=== PATIENT | female | born 1955 | race Caucasian/White ===

== ENCOUNTER 2018-11-13 08:30 | Inpatient (IN) | payer MEDICARE, OTHER ==
[~2018-11-13] VITALS: Ht 170.2 cm; Wt 71.7 kg
[~2018-11-13 08:30] MED LIST: ATOR10 PO; B Complex #11 EACH; BENEFIBER1 EACH; CAMBIA50 MG PO; CHOL10002 PO; CLIMARA1 PATCH.W1 TOP; CONEST.9 PO; DOCU100 PO; ESTMED1.5T PO; ESTMEDA PO; FISH OIL 1,0001 EACH PO; HAIR, SKIN & N1 EAC1 PO; HYDACE10B PO; HYDACE5 PO; HYDR1TAB94 PO; IBUP400; IBUP800 PO; Ibuprofen Ib100 MG PO; KRILL OIL500 MG; KRILL OIL500 MG PO; LAVAP17G; MAGN84 PO; MULVITA PO; Multivitamin1 EAC1 PO; OXYACE5T PO; POLY17UD PO; PROG100 PO; STOOL SOFTENER PRN PO; Stool Softener100 MG PO; Super B Comple1 EAC2 PO; TRAM50 PO; [UNRECOGNIZED DRUG - REMARK]
--- NOTE | 2018-12-04 06:34 | NUR ---
History, Chart, Medications and Allergies reviewed before start of procedure. Patient confirms NPO status and agrees with scheduled surgery. Lungs clear T/O to Auscultation. Patient reports completing Chlorhexadine shower X2 prior to admission to hospital. Pre-Op teaching done. Pt verbalizes understanding.
--- NOTE | 2018-12-04 07:07 | NUR ---
TRACKER EXPLAINED AND QUESTIONS ANSWERED.
--- NOTE | 2018-12-04 07:11 | NUR ---
PATIENT UP TO BATHROOM FOR UNMEASURED.
--- NOTE | 2018-12-04 07:36 | NUR ---
NATALYN SWABS TO BILATERAL NARES PRESURGICALLY.
--- NOTE | 2018-12-04 17:34 | NUR ---
SHIFT SUMMARY S/P R MEGAN TODAY. PT HAS WORKED WITH PHYSICAL THERAPY AND IS DOING WELL WITH SBA USING FWW AND GAIT BELT. PT RECEIVING SCHEDULED TORADOL, TYLENOL, AND OXYCODONE FOR PAIN MANAGEMENT. DRESSING TO R HIP IS CDI WITH POLAR PACK IN PLACE. PT ALSO USING KPAD TO LOWER BACK FOR COMFORT. PT SLOWLY JOSELINE CLEAR LIQS AND SMALL PO INTAKE WITH NAUSEA X1. IVF INFUSING PER ORDERS. PT VOIDING. VSS. PT VERY PLEASANT AND ORIENTED. AT SIDE FOR SUPPORT. USES CALL LIGHT APPROPRIATELY.
--- NOTE | 2018-12-05 04:07 | NUR ---
SHIFT SUMMARY: PT POD #1 FOR RIGHT MEGAN. A&O X4. VS WNL. JOSELINE REG DIET, DENIES N/V. ADEQUATE PO INTAKE. PAIN MANAGED WITH 10MG OXY Q4 PER EMAR. DRESSING TO R HIP IS C/D/I. POLAR PACK IN PLACE. OOB SEVERAL TIMES TO BATHROOM W/FWW+GB. VOIDING AND JOSELINE ACTIVITY WELL. NO CONCERNS AT THIS TIME.
[2018-12-05 04:29] LABS: BASOPHILS ABSOLUTE AUTO 0.02 K/mm3 (0.00-0.23); BASOPHILS PERCENT AUTO 0 % (0-2); EOSINOPHILS ABSOLUTE AUTO 0.03 K/mm3 (0.00-0.68); EOSINOPHILS PERCENT AUTO 0 % (0-6); Hematocrit 28.7 % (33.0-51.0); Hemoglobin 9.2 g/dL (11.5-16.0); IMMATURE GRAN ABSOLUTE AUTO 0.01 K/mm3 (0.00-0.10); IMMATURE GRAN PERCENT AUTO 0 % (0-1); LYMPHOCYTES ABSOLUTE AUTO 1.34 K/mm3 (0.84-5.20); LYMPHOCYTES PERCENT AUTO 19 % (21-46); MONOCYTES ABSOLUTE AUTO 0.85 K/mm3 (0.16-1.47); MONOCYTES PERCENT AUTO 12 % (4-13); Mean Corpuscular HGB 30.8 pg (26.0-34.0); Mean Corpuscular HGB Conc 32.1 g/dL (31.5-36.5); Mean Corpuscular Volume 96 fL (80-100); Mean Platelet Volume 10.6 fL (9.1-12.4); NEUTROPHILS ABSOLUTE AUTO 4.93 K/mm3 (1.96-9.15); NEUTROPHILS PERCENT AUTO 69 % (41-73); Platelet Count 185 K/mm3 (150-400); RDW Coefficient Variation 12.7 % (11.7-14.2); RDW Standard Deviation 44.5 fL (35.1-46.3); Red Blood Cell Count 2.99 M/mm3 (3.80-5.20); White Blood Cell Count 7.18 K/mm3 (4.00-11.30)
[2018-12-05 04:48] LABS: Anion Gap 5 mmol/L (6-16); Blood Urea Nitrogen 13 mg/dL (8-24); CO2, Blood 28 mmol/L (21-32); Calcium, Blood 8.3 mg/dL (8.5-10.1); Chloride, Blood 109 mmol/L (98-108); Creatinine, Blood 0.62 mg/dL (0.40-1.00); Glomerular Filtration Rate >60 (60-); Glucose, Blood 119 mg/dL (70-99); Potassium, Blood 3.8 mmol/L (3.5-5.5); Sodium, Blood 142 mmol/L (136-145)
[2018-12-05] MEDS ORDERED: OXYC5 PO (14:57)
[2018-12-05] MEDS ORDERED: ASPI325 PO (14:58)
--- NOTE | 2018-12-05 15:28 | NUR ---
DISCHARGE SUMMARY PT DISCHARGED HOME AT THIS TIME. PT CLEARED THERAPY, PAIN MANAGED, JOSELINE PO INTAKE, AND VOIDING. PT AND SPOUSE EDUCATED ON DISCHARGE INSTRUCTIONS AND VERBALIZED AN UNDERSTANDING. HARD RX FOR OXYCODONE GIVEN TO PT. PT REPORTS HAVING ASA AT HOME. F/U APPT SCHEDULED. IV DC'D. PT ESCORTED OUT VIA W/C WITH ALL PERSONAL BELONGINGS.
[2018-12-06] MEDS ORDERED: TRAM50 PO (07:17)
== END 2018-12-05 15:28 | disposition home or self-care (01) | DRG 470 ==
LOC: SURS 12-04 05:52 → PRE IP 12-04 07:30 → SURS 12-04 11:01
PROVIDERS: ADMIT Orthopaedic Surgery
PROC: 0SR904A Replacement of Right Hip Joint with Ceramic on Polyethylene Synthetic Substitute, Uncemented, Open Approach (ICD-10-PCS; principal; 2018-12-04 07:30)
DX: M16.11 Unilateral primary osteoarthritis, right hip (principal); E78.5 Hyperlipidemia, unspecified; G43.109 Migraine with aura, not intractable, without status migrainosus; Z79.899 Other long term (current) drug therapy
CPT/HCPCS: 36415; 72170; 80048; 83735; 85025; 86850; 86900; 86901; 88300; 97110; 97116; 97162; 97165; 97530; 97535; J0171; J0690; J0735; J1170; J1885; J2250; J2405; J2795; J3010; J7120

== ENCOUNTER 2018-12-06 06:16 | Inpatient (IN) | payer MEDICARE, OTHER ==
[~2018-12-06] VITALS: Ht 170.2 cm; Wt 70.8 kg
[~2018-12-06 06:16] MED LIST changes: +ASPI325 PO; +OXYC5 PO
[2018-12-06] MEDS ORDERED: TRAM50 PO (07:17)
[2018-12-06 09:47] LABS: BASOPHILS ABSOLUTE AUTO 0.02 K/mm3 (0.00-0.23); BASOPHILS PERCENT AUTO 0 % (0-2); EOSINOPHILS PERCENT AUTO 0 % (0-6); Hematocrit 30.6 % (33.0-51.0); Hemoglobin 9.7 g/dL (11.5-16.0); IMMATURE GRAN ABSOLUTE AUTO 0.05 K/mm3 (0.00-0.10); IMMATURE GRAN PERCENT AUTO 0 % (0-1); LYMPHOCYTES PERCENT AUTO 8 % (21-46); MONOCYTES ABSOLUTE AUTO 1.32 K/mm3 (0.16-1.47); MONOCYTES PERCENT AUTO 11 % (4-13); Mean Corpuscular HGB 31.3 pg (26.0-34.0); Mean Corpuscular HGB Conc 31.7 g/dL (31.5-36.5); Mean Corpuscular Volume 99 fL (80-100); Mean Platelet Volume 11.2 fL (9.1-12.4); NEUTROPHILS ABSOLUTE AUTO 9.46 K/mm3 (1.96-9.15); NEUTROPHILS PERCENT AUTO 80 % (41-73); Platelet Count 208 K/mm3 (150-400); RDW Coefficient Variation 12.9 % (11.7-14.2); RDW Standard Deviation 46.5 fL (35.1-46.3); White Blood Cell Count 11.85 K/mm3 (4.00-11.30)
[2018-12-06 10:02] LABS: Alanine Aminotransfer (ALT/SGP 30 U/L (12-78); Albumin, Blood 3.2 g/dL (3.4-5.0); Albumin/Globulin Ratio 0.8 (0.8-1.8); Alk Phos 70 U/L (50-136); Anion Gap 5 mmol/L (6-16); Aspartate Aminotrans (AST/SGOT 42 U/L (12-37); Bilirubin, Total 0.6 mg/dL (0.1-1.0); Blood Urea Nitrogen 10 mg/dL (8-24); Bun/Creatinine Ratio 17.9 (12.0-20.0); CO2, Blood 26 mmol/L (21-32); Calcium, Blood 8.3 mg/dL (8.5-10.1); Chloride, Blood 107 mmol/L (98-108); Creatinine, Blood 0.56 mg/dL (0.40-1.00); Globulin, Blood 3.8 g/dL (2.2-4.0); Glomerular Filtration Rate >60 (60-); Glucose, Blood 123 mg/dL (70-99); International Normalized Ratio 1.02; Potassium, Blood 3.5 mmol/L (3.5-5.5); Prothrombin Time Results 10.8 Sec (9.7-11.5); Sodium, Blood 138 mmol/L (136-145)
--- NOTE | 2018-12-06 10:34 | NUR ---
pt arrived to room 226 from er dept pt had a fall from syncope this am from her bed stated she had been discharged from the hosp yesterday for ant r hip replacment with dr calloway pt had just got up to void and was going back to bed sitting on the edge of her bed was getting sick to her stomach her spouse left the room for a sec and she fainted and fell off the bed the hip was dislocated pt r hip was reduced in er dept pt is npo for or today with dr wu
--- NOTE | 2018-12-06 11:52 | NUR ---
po oxy given with sip of h20 called dr wu for orders
--- NOTE | 2018-12-06 14:30 | NUR ---
PT ATTEMPTED DIFF POSISTION FOR COMFORT UNABLE TO REST OFFERED PAIN MEDS DILAUDID 0.5 MG IVP GIVEN PT EARLIER ALSO ASKED TO GET UP TO BSC TO VOID STATED STRICT BEDREST UNTIL AFTER SURG
--- NOTE | 2018-12-06 16:30 | NUR ---
PT VISITING WITH FRIENDS REQ COME BACK IN A LITTLE BIT TO START IV FOR OR
--- NOTE | 2018-12-06 17:15 | NUR ---
DILAUDID 0.5MG GIVEN ATTEMPTED IV UNABLE TO GET CALLED DAY SURG NO ONE ANS ALSO CALLED PACU NO ANS AWAITING STAFF
--- NOTE | 2018-12-06 17:45 | NUR ---
PT TRANSPORTED TO OR VIA BED
--- NOTE | 2018-12-06 17:50 | NUR ---
INTO SDS VIA BED. PT A&OX3. HISTORY AND ALLERGIES REVIEWED. NPO STATUS CONFIRMED. LUNGS CLEAR-SATS>90% ON RA.
--- NOTE | 2018-12-06 19:40 | NUR ---
12/06/181939 Tania Huerta NUMBERS NOT AVAILABLE TO PUT IN FOR CHARGE REF:[id number] LOT:[id number] EXP 01-08-2023 ACET LINER +4 10 DEGREE 40MM 56MM OD
--- NOTE | 2018-12-06 20:45 | NUR ---
PT ARRIVES TO ICU 3 FROM OR UNDER ICU PACU STATUS AT 2024. PT ALERT AND ORIENTED. PLEASANT AND COOPERATIVE WITH CARE AND ASSESSMENT. DERMATOMES DONE WHICH REVEALS SENSATION BEGINS BILATERALLY AT TOP OF HIPS. PT ON ROOM AIR, AND MAINTAINS > 90 PERCENT SATURATIONS.
[2018-12-06 21:58] LABS: Source, Urine Catheter
[2018-12-06 22:00] LABS: Bilirubin, Urine Neg (Neg); Blood, Urine 1+ (Neg); Glucose Qualitative, Urine Neg (Neg); Ketones, Urine 2+ (Neg); Leukocyte Esterase, Urine Neg (Neg); Nitrite, Urine Neg (Neg); Protein, Urine Neg (Neg); Urobilinogen, Urine NORM (Normal)
[2018-12-06 22:03] LABS: Appearance, Urine Clear (Clear); Color, Urine Yellow (P-Yellow)
[2018-12-06 22:13] LABS: Bacteria Rare /hpf; Red Blood Cells, Urine 0-2 /hpf (0-2); Squamous Epithelial Cells Few /hpf (Few); White Blood Cells, Urine Rare /hpf (0-5)
--- NOTE | 2018-12-06 22:15 | NUR ---
PT HAS COMPLETED PACU RECOVERY. HAVE MEDICATED PT ONCE WITH 25 MCG FENTANYL, AND ANOTHER DOSE OF 50 MCG'S. PT HAS HAD COMPLAINTS OF LOWER BACK PAIN, AND ABDOMINAL PAIN. PT HAS NO SENSATION OF NEEDING TO URINATE. PT DID STATE AFTER HER PREVIOUS SURGERY, SHE WAS NOT ABLE TO VOID, AND REQUIRED SHAVER. BLADDER SCAN DONE WHICH REVEALS > 893 ML URINE RETENTION. DID PLACE 14 SOMALI SHAVER WITH GOOD OUTPUT. UA SENT PER PROTOCOL. PT ABLE TO STATE THAT SHE HAS GOOD IMPROVEMENT OF BACK AND ABDOMINAL PAIN. DERMAFORMS DONE PRIOR TO TRANSFER TO ROOM 226. PT ABLE TO WIGGLE TOES BILATERALLY. SENSATION DOWN TO FEET. CALL MADE TO RENEA BONILLA. REPORT GIVEN. ALLOWED FOR QUESTIONS. PT'S HAS BEEN IN ROOM, AND HAS LEFT TO GO HOME. PT TRANSPORTED PT TO ROOM 226. PT IN STABLE CONDITION. SEE VS FLOWSHEET FOR RECOVERY DETAILS.
--- NOTE | 2018-12-06 22:37 | NUR ---
PT ARRIVED TO THE ROOM AT APPROXIMATELY 2210. PT IS ALERT AND ORIENTED. SHE REPORTS MILD PAIN TO HER R HIP BUT DENIES NEED FOR PAIN MEDICATION AT THIS TIME. SHE DOES REPORT MILD ABD DISCOMFORT, DENIES MEDICATION FOR NAUSEA AT THIS TIME.
[2018-12-07 04:39] LABS: BASOPHILS ABSOLUTE AUTO 0.02 K/mm3 (0.00-0.23); BASOPHILS PERCENT AUTO 0 % (0-2); EOSINOPHILS ABSOLUTE AUTO 0.01 K/mm3 (0.00-0.68); EOSINOPHILS PERCENT AUTO 0 % (0-6); Hematocrit 24.4 % (33.0-51.0); Hemoglobin 7.8 g/dL (11.5-16.0); IMMATURE GRAN ABSOLUTE AUTO 0.03 K/mm3 (0.00-0.10); IMMATURE GRAN PERCENT AUTO 1 % (0-1); LYMPHOCYTES ABSOLUTE AUTO 1.35 K/mm3 (0.84-5.20); LYMPHOCYTES PERCENT AUTO 21 % (21-46); MONOCYTES ABSOLUTE AUTO 0.84 K/mm3 (0.16-1.47); MONOCYTES PERCENT AUTO 13 % (4-13); Mean Corpuscular HGB 30.7 pg (26.0-34.0); Mean Platelet Volume 10.4 fL (9.1-12.4); NEUTROPHILS PERCENT AUTO 65 % (41-73); Platelet Count 171 K/mm3 (150-400); RDW Standard Deviation 45.8 fL (35.1-46.3); Red Blood Cell Count 2.54 M/mm3 (3.80-5.20); White Blood Cell Count 6.45 K/mm3 (4.00-11.30)
[2018-12-07 04:46] LABS: Mean Corpuscular Volume 96 fL (80-100)
[2018-12-07 04:59] LABS: Anion Gap 5 mmol/L (6-16); Blood Urea Nitrogen 7 mg/dL (8-24); CO2, Blood 28 mmol/L (21-32); Chloride, Blood 109 mmol/L (98-108); Creatinine, Blood 0.54 mg/dL (0.40-1.00); Glomerular Filtration Rate >60 (60-); Glucose, Blood 129 mg/dL (70-99); Potassium, Blood 3.6 mmol/L (3.5-5.5); Sodium, Blood 142 mmol/L (136-145)
--- NOTE | 2018-12-07 06:44 | NUR ---
SUMMARY PT WITH RECENT ORTHO SURGERY AND WAS DISCHARGED HOME.PT REPORTS PASSED OUT AT HOME AND FELL WITH RESULTANT RE-INJURY.ORTHO SURG LAST NIGHT. PT HAS SHAVER POSTOP DUE TO RETENTION. PT WITH HX CHRONIC NEUROPATHY BLE DUE TO NERVE ENTRAPMENT WITH SURGERY. AT THIS TIME PT REPORTS HAS RETURNED TO BASELINE SENSATION AND IS ABLE TO DORSI AND PLANTAR FLEX. IV FLUIDS INFUSING. RECENT TORADOL. NO C/O NAUSEA.
--- NOTE | 2018-12-07 07:00 | NUR ---
recvd report from previous shift rn lindsay, pt sitting up in bed a/0 x 4, pleasant/cooperative. pt states pain at 5/10, will reassess and medicate per mar. call light within reach, bed rails up x 2, bed in lowest position. pt received two RN visitors while in room
--- NOTE | 2018-12-07 15:00 | NUR ---
PHYSICAL THERAPY WORKING WITH PT
--- NOTE | 2018-12-07 18:35 | NUR ---
SHIFT SUMMARY: VSS, NO ACUTE CHANGES, PT REMAINED A/0 X 4, PLEASANT/COOPERATIVE, VSS. PT VOIDED FOLLOWING DC SHAVER CATHETER. NO BM TODAY, PROVIDED WITH BOWEL CARE. PT WORKED WITH PHYSICAL THERAPY X 2, WALKED TO HALLWAY. PT UP IN CHAIR FOR MEALS. PT STATES PAIN CONTROLLED PER MAR TO HER EXPECTATION. PT TOLERATED PO INTAKE WITH NO N/V. PT HAD SEVERAL VISITORS TODAY, FRIENDS AND FAMILY.
[2018-12-08 05:32] LABS: BASOPHILS ABSOLUTE AUTO 0.03 K/mm3 (0.00-0.23); BASOPHILS PERCENT AUTO 0 % (0-2); EOSINOPHILS ABSOLUTE AUTO 0.09 K/mm3 (0.00-0.68); EOSINOPHILS PERCENT AUTO 1 % (0-6); Hematocrit 27.7 % (33.0-51.0); Hemoglobin 8.8 g/dL (11.5-16.0); IMMATURE GRAN ABSOLUTE AUTO 0.03 K/mm3 (0.00-0.10); IMMATURE GRAN PERCENT AUTO 0 % (0-1); LYMPHOCYTES ABSOLUTE AUTO 1.78 K/mm3 (0.84-5.20); LYMPHOCYTES PERCENT AUTO 25 % (21-46); MONOCYTES ABSOLUTE AUTO 0.85 K/mm3 (0.16-1.47); MONOCYTES PERCENT AUTO 12 % (4-13); Mean Corpuscular HGB Conc 31.8 g/dL (31.5-36.5); Mean Corpuscular Volume 98 fL (80-100); Mean Platelet Volume 10.5 fL (9.1-12.4); NEUTROPHILS ABSOLUTE AUTO 4.35 K/mm3 (1.96-9.15); NEUTROPHILS PERCENT AUTO 61 % (41-73); Platelet Count 219 K/mm3 (150-400); RDW Coefficient Variation 12.8 % (11.7-14.2); RDW Standard Deviation 45.3 fL (35.1-46.3); Red Blood Cell Count 2.84 M/mm3 (3.80-5.20); White Blood Cell Count 7.13 K/mm3 (4.00-11.30)
--- NOTE | 2018-12-08 07:31 | NUR ---
SHIFT SUMMARY PT RESTED WELL IN CHAIR T/O NIGHT. AAOX4. DISCOMFORT CONTROLLED WITH 2 ROXICODONE X1 THIS SHIFT, NAUSEA CONTROLLED WITH X1 ZOFRAN. NO EMESIS. DRESSING TO RIGHT HIP C/D/I. CRYOTHERAPY IN PLACE + IMMOBILIZER WHEN PT IS RESTING IN BED. GOOD PO INTAKE + OUTPUT. CALL LIGHT IN REACH + PT USES FOR ASSISTANCE.
--- NOTE | 2018-12-08 16:17 | NUR ---
SHIFT SUMMARY PT A&OX4, VSS, POD2 R MEGAN REPLACEMT HARDWARE, AQUACEL CDI, IMMOBILZER ON WHILE IN BED. PAIN MANAGED WITH 10 MG NORCO, LEG SPASMS IMPROVED WITH REPOSITIONING. JOSELINE PO, REP SOME NAUSEA, DENIES VOMITING, REGLAN GIVEN X1. AMB SBA W/FWW & GB TO BRP, CHAIR AND UP IN ROOM T/O SHIFT. VOIDING WELL. PLAN IS FOR PT TO DC TOMORROW. REPORT GIVEN TO SUGAR MEIER.
--- NOTE | 2018-12-08 17:00 | NUR ---
ASSUMED CARE OF PATIENT AT THIS TIME.
--- NOTE | 2018-12-09 04:28 | NUR ---
SHIFT SUMMARY PT RESTED WELL T/O NIGHT. AAOX4. DISCOMFORT CONTROLLED WITH 2 NORCO X1 THIS SHIFT, NAUSEA CONTROLLED WITH ZOFRAN, NO EMESIS. DRESSING TO RIGHT HIP C/D/I. PT SBA WITH FWW UP TO RESTROOM + OUT IN HALLS TO AMBULATE, TOLERATED WELL. NO ACUTE CHANGES THIS SHIFT. CALL LIGHT IN REACH + PT USES FOR ASSISTANCE.
[2018-12-09] MEDS ORDERED: HYDR1TAB94 PO (10:01)
--- NOTE | 2018-12-09 11:52 | NUR ---
DISCHARGE SUMMARY PT A&OX4, VSS, LEFT FLOOR VIA WC WITH RN TO GO HOME WITH , WITH ALL PERSONAL POSSESSIONS INCLUDING DISCHARGE PACKET AND 1 NARC SCRIPT. DISCHARGE INSTRUCTIONS PROVIDED. PT REP UNDERSTANDING THOSE INSTRUCTIONS INCLUDING FU WITH SURGEON IN 2 WKS, AQUACEL CHANGED PRIOR TO DC WITH INSTRUCTIONS TO CHANGE EVERY 5-[address] MOBLEY. WEAR IMMOBILIZER AT HS. PAIN MANAGED WITH 1-2 TABS Q6P AND REPOSITIONING, ELEVATE & ICE. IV DC'D.
== END 2018-12-09 11:10 | disposition home or self-care (01) | DRG 467 ==
LOC: ER 06:16 → SURS 06:17 → ER 08:52 → SURS 08:52
PROVIDERS: Emergency Medicine; ADMIT Orthopaedic Surgery
PROC: 0SUR09Z Supplement Right Hip Joint, Femoral Surface with Liner, Open Approach (ICD-10-PCS; 2018-12-06)
PROC: 0SP909Z Removal of Liner from Right Hip Joint, Open Approach (ICD-10-PCS; principal; 2018-12-06 17:00)
DX: T84.020A Dislocation of internal right hip prosthesis, initial encounter (principal); D62 Acute posthemorrhagic anemia; W06.XXXA Fall from bed, initial encounter; E78.5 Hyperlipidemia, unspecified
CPT/HCPCS: 27265; 36415; 72170; 73501; 73502; 80048; 80053; 81001; 83735; 85025; 85610; 85730; 93005; 93010; 96374-59; 96375; 96376; 97110; 97116; 97162; 97530; 99152; 99285-25; A9270-GY; C1713; C1776; G0378; J0171; J0690; J0735; J1170; J1885; J2250; J2405; J2704; J2765; J2795; J3010; J7030; J7120

== ENCOUNTER → 2019-04-08 | Outpatient (CLI) | payer MEDICARE, OTHER ==
[2019-04-10 14:07] LABS: HPV 16 Negative (Negative); HPV 18 Negative (Negative); HPV OTHER HR TYPES Negative (Negative)
== END | disposition home or self-care (01) ==
LOC: LAB 17:06 → LAB SHORT 17:06
PROVIDERS: Nurse Practitioner Women's Health
DX: Z12.4 Encounter for screening for malignant neoplasm of cervix (principal)
CPT/HCPCS: 87624; G0123

== ENCOUNTER → 2021-05-31 | Outpatient (CLI) | payer MEDICARE, OTHER ==
[2021-06-01 13:58] LABS: Stool Occult Bld Immuno 1 Negative (NEGATIVE)
== END | disposition home or self-care (01) ==
LOC: LAB SHORT 13:00 → LAB FUT 05-26 11:20
PROVIDERS: Internal Medicine Gastroenterology
DX: R19.4 Change in bowel habit (principal); Z86.010 Personal history of colon polyps
CPT/HCPCS: 82274

== ENCOUNTER → 2024-10-24 | Outpatient (CLI) | payer MEDICARE, BC ==
[~2024-10-24] MED LIST changes: +ONDA4ODT MM
[2024-10-25 16:53] LABS: Adenovirus F 40/41 Not Detected (NOT DETECT); Astrovirus Not Detected (NOT DETECT); Campylobacter Sp Not Detected (NOT DETECT); Cryptosporidium Not Detected (NOT DETECT); Cyclospora Cayetanensis Not Detected (NOT DETECT); E. Coli O157 Not Detected (NOT DETECT); Entamoeba Histolytica Not Detected (NOT DETECT); Enteroaggregative E. coli-EAEC Not Detected (NOT DETECT); Enteropathogenic E. coli-EPEC Not Detected (NOT DETECT); Enterotoxigenic E. coli-ETEC Not Detected (NOT DETECT); Giardia Lamblia Not Detected (NOT DETECT); Norovirus GI/GII Not Detected (NOT DETECT); Plesiomonas Shigelloides Not Detected (NOT DETECT); Rotavirus A Not Detected (NOT DETECT); Salmonella Sp Not Detected (NOT DETECT); Sapovirus Not Detected (NOT DETECT); Shiga Toxin-prod E. coli-STEC Not Detected (NOT DETECT); Shigella/Enteroin E. coli-EIEC Not Detected (NOT DETECT); Vibrio Cholerae Not Detected (NOT DETECT); Vibrio Sp Not Detected (NOT DETECT); Yersinia Enterocolitica Not Detected (NOT DETECT)
== END ==
LOC: LAB SHORT 12:30 → LAB 12:30
PROVIDERS: Physician Assistant
DX: R19.7 Diarrhea, unspecified (principal)
CPT/HCPCS: 87507